=== PATIENT | female | born 1970 | race Caucasian/White ===

== ENCOUNTER 2025-07-08 13:40 | Emergency (ER) | payer OTHER, SELFPAY ==
[2025-07-08 13:44] VITALS: BP 164/96; PULSE 71; TEMP 37.2; O2SAT 97; BMI 26.6
--- NOTE | 2025-07-08 13:53 | PC.NURSE ---
no bruising, redness or swelling at site, skin is intact
--- NOTE | 2025-07-08 13:58 | XR_ITS ---
The [address] [address] Patient Name: DEMETRI HOPKINS MRN: [id number] date: 1970 Sex: F Assigned Patient Location: ED.MAIN Current Patient Location: ED.MAIN Accession/Order Number: [id number] Exam Date: 07/08/2025 14:48 Report Date: 07/08/2025 14:59 At the request of: MADELYN PHAN MD Procedure: XR lumbar spine 2-3V XR lumbar spine 2-3V 07/08/2025 2:53 PM SIGNS AND SYMPTOMS: Low back pain on right side PROTOCOLS: Frontal and lateral radiograph of the lumbar spine COMPARISON: None FINDINGS: The alignment, development and bony structures are normal. There is no fracture or destructive lesion. There is mild disc height loss at L4-5 and L5-S1 with accompanying mild facet hypertrophy. The sacrum and sacroiliac joints are normal. XR/XR lumbar spine 2-3V IMPRESSION: No fracture or subluxation. Mild degenerative changes are noted in the lower lumbar spine. Impression dictated by: Jatinder Colindres M.D. 07/08/2025 2:59 PM Dictation Location: [place] [address] Electronically authenticated by: [id number] Y Date: 07/08/2025 14:59
--- NOTE | 2025-07-08 13:58 | ED.GENADUL1 ---
HPI HPI - General Adult General Chief complaint: Back Pain/Injury Stated complaint: FALL; R SIDED LOWER BACK/LEG PAIN Time Seen by Provider: 07/08/25 13:55 Source: patient Mode of arrival: walk-in History of Present Illness HPI narrative: 54-year-old female presented to the emergency department for a chief complaint of right lower back pain. 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 She did not strike her head and sustained no other injuries. The pain does not radiate. No chest or upper back pain. Related Data Previous Rx's ?Medication ?Instructions ?Recorded acetaminophen 300 mg-codeine 30 mg 1 tab PO Q6H PRN pain 5 days #20 07/08/25 tablet tabs ibuprofen 800 mg tablet 800 mg PO Q8H PRN pain #20 tabs 07/08/25 Allergies Allergy/AdvReac Type Severity Reaction Status Date / Time No Known Drug Allergies Allergy Verified 07/08/25 13:49 Review of Systems ROS Narrative A ten point review of systems is negative except as noted above. PFSH PFSH Social History Little interest or pleasure in doing things: not at all Feeling down, depressed, or hopeless: not at all Exam Narrative Exam Narrative: Nurses note and vital signs reviewed General:The patient appears no acute distress Skin:Warm, dry, no pallor noted.There is no rash noted. Head:Normocephalic, atraumatic Eye: Normal conjunctiva, no drainage Ears, Nose, Mouth, and Throat: oral mucosa is moist. Nares patent. Cardiovascular:Regular Rate and Rhythm Respiratory:Patient is in no distress, no accessory muscle use, lungs are clear to auscultation, no wheezing, rales or rhonchi Back: No midline tenderness in the lumbar or thoracic areas. A bruise or abrasion on her lower back. GI:Normal bowel sounds, no tenderness to palpation, no masses appreciated.No rebound, guarding, or rigidity noted. Musculoskeletal: The patient has no evidence of calf tenderness, no pitting edema, symmetrical pulses noted bilaterally Neurological:A&O, normal speech Psychiatric:Cooperative Constitutional Vital Signs, click to edit/add: Last Vital Signs Temp 98.9 F 07/08/25 13:44 Pulse 71 07/08/25 13:44 Resp 16 07/08/25 13:44 BP 164/96 H 07/08/25 13:44 Pulse Ox 97 07/08/25 13:44 O2 Del Method Room Air 07/08/25 13:44 Course Vital Signs Vital signs: Vital Signs Temperature 98.9 F 07/08/25 13:44 Pulse Rate 71 07/08/25 13:44 Respiratory Rate 16 07/08/25 13:44 Blood Pressure 164/96 H 07/08/25 13:44 Pulse Oximetry 97 07/08/25 13:44 Oxygen Delivery Method Room Air 07/08/25 13:44 Temperature 98.9 F 07/08/25 13:44 Pulse Rate 71 07/08/25 13:44 Respiratory Rate 16 07/08/25 13:44 Blood Pressure 164/96 H 07/08/25 13:44 Pulse Oximetry 97 07/08/25 13:44 Oxygen Delivery Method Room Air 07/08/25 13:44 Medical Decision Making MDM Narrative Medical decision making narrative: X-ray showed no acute findings. She was prescribed Tylenol 3 and ibuprofen. Treatment diagnosis and follow-up were discussed with the patient and her . Differential Diagnosis Differential Diagnosis: Contusion, fracture Imaging Data Lumbar x-rays: Radiologist's impression: ITS Impressions Lumbar Spine X-Ray 07/08/25 13:58 IMPRESSION: No fracture or subluxation. Mild degenerative changes are noted in the lower lumbar spine. Impression dictated by: Jatinder Colindres M.D. 07/08/2025 2:59 PM Dictation Location: [place] [address] Electronically authenticated by: [id number] Y Date: 07/08/2025 14:59 Discharge Plan Discharge Chief Complaint: Back Pain/Injury Clinical Impression: Lumbar contusion Patient Disposition: Home, Self-Care Time of Disposition Decision: 15:07 Condition: Good Mode of Transportation: Private Vehicle Prescriptions / Home Meds: New acetaminophen-codeine 300-30 mg tablet 1 tab PO Q6H PRN (Reason: pain) 5 Days Qty: 20 0RF ibuprofen 800 mg tablet 800 mg PO Q8H PRN (Reason: pain) Qty: 20 0RF Print Language: Bruneian Instructions: Contusion in Adults (ED) Referrals: LACHO YOON NP [Primary Care Provider] - 1 week
== END 2025-07-08 15:42 | disposition home or self-care (01) ==
PROVIDERS: Emergency Provider Emergency Medicine; Family Provider Family Medicine; PCP Nurse Practitioner Family
DX: S30.0XXA Contusion of lower back and pelvis, initial encounter (principal); W01.0XXA Fall on same level from slipping, tripping and stumbling without subsequent striking against object, initial encounter
CPT/HCPCS: 72100; 99283